=== PATIENT | female | born 1955 | race American Indian/Alaskan Native ===

== ENCOUNTER 2020-11-09 17:41 | Emergency (ER) | payer OTHER ==
--- NOTE | 2020-11-09 18:13 | Event Note ---
ED Screening Note ED Screening Note: LLQ abd pain that radiates to the left lower back began two hours ago +n/v no diarrhea no constipation had a normal BM today no blood or pus in the stool PMHx none no daily meds no allergies to meds abdominal surgical hx: tubal ligation This initial assessment/diagnostic orders/clinical plan/treatment(s) is/are subject to change based on patients health status, clinical progression and re- assessment by fellow clinical providers in the ED. Further treatment and workup at subsequent clinical providers discretion. Patient/guardian urged not to elope from the ED as their condition may be serious if not clinically assessed and managed. Initial orders include: labs, UA, CT abd pelvis
[2020-11-09] MEDS ORDERED: ONDANSETRON 4 MG/2 ML INJ IV ONE (18:14)
[2020-11-09] MEDS ORDERED: MORPHINE 4 MG/1 ML INJ IV ONE (18:14)
[2020-11-09] MEDS ORDERED: SODIUM CHLORIDE 0.9% 1000 ML 1,000 ML IV ONE (18:14)
--- NOTE | 2020-11-09 18:18 | Emergency Department Report ---
ED Abdominal Pain HPI - General Chief Complaint: Abdominal Pain Stated Complaint: ABD PAIN Time Seen by Provider: 11/09/20 18:11 Source: patient Mode of arrival: Ambulatory Limitations: No Limitations - History of Present Illness Initial Comments: Patient is a 64-year-old female presents emergency room complaints of left lower quadrant pain that radiates to her left lower back that began 2 hours ago. She has associated nausea and vomiting. She states she had a normal bowel movement today. She denies any fever, chills, urinary symptoms, hematochezia, melena, hematemesis,diarrhea, pus in the stool. No past medical history. No daily medications. No allergies to medications. she denies any past abdominal surgical history. - Related Data Previous Rx's Medication Instructions Recorded Last Taken Type HYDROcodone/APAP 5-325 [[place] 1 each PO Q6HR PRN #12 tablet 11/09/20 Unknown Rx 5/325] Ketorolac [Toradol] 10 mg PO Q6H PRN #10 tablet 11/09/20 Unknown Rx Ondansetron [Zofran Odt] 4 mg PO Q8HR PRN #10 tab.rapdis 11/09/20 Unknown Rx Tamsulosin [Flomax] 0.4 mg PO QDAY #7 cap 11/09/20 Unknown Rx Allergies Allergy/AdvReac Type Severity Reaction Status Date / Time No Known Allergies Allergy Unverified 11/09/20 18:06 ED Review of Systems ROS: Stated complaint: ABD PAIN Other details as noted in HPI Comment: All other systems reviewed and negative ED Past Medical Hx - Past Medical History Previous Medical History?: No - Surgical History Past Surgical History?: No - Social History Smoking Status: Never Smoker Substance Use Type: None - Medications Home Medications: Home Medications Medication Instructions Recorded Confirmed Last Taken Type HYDROcodone/APAP 5-325 [[place] 1 each PO Q6HR PRN #12 tablet 11/09/20 Unknown Rx 5/325] Ketorolac [Toradol] 10 mg PO Q6H PRN #10 tablet 11/09/20 Unknown Rx Ondansetron [Zofran Odt] 4 mg PO Q8HR PRN #10 tab.rapdis 11/09/20 Unknown Rx Tamsulosin [Flomax] 0.4 mg PO QDAY #7 cap 11/09/20 Unknown Rx ED Physical Exam - General Limitations: No Limitations General appearance: alert, in no apparent distress - Head Head exam: Present: atraumatic, normocephalic - Eye Eye exam: Present: normal appearance - ENT ENT exam: Present: mucous membranes moist - Respiratory Respiratory exam: Present: normal lung sounds bilaterally. Absent: respiratory distress, wheezes, rales, rhonchi, stridor, chest wall tenderness, accessory muscle use, decreased breath sounds, prolonged expiratory - Cardiovascular Cardiovascular Exam: Present: regular rate, normal rhythm, normal heart sounds. Absent: systolic murmur, diastolic murmur, rubs, gallop - GI/Abdominal GI/Abdominal exam: Present: soft, tenderness (LLQ), normal bowel sounds. Absent: distended, guarding, rebound, rigid - Back Exam Back exam: Absent: CVA tenderness (R), CVA tenderness (L) - Neurological Exam Neurological exam: Present: alert, oriented X3 - Psychiatric Psychiatric exam: Present: normal affect, normal mood - Skin Skin exam: Present: warm, dry, intact ED Course Vital Signs 11/09/20 11/09/20 18:10 18:39 Temperature 98.0 F Pulse Rate 68 Respiratory 16 18 Rate Blood Pressure 187/81 O2 Sat by Pulse 97 Oximetry ED Medical Decision Making - Lab Data Result diagrams: 11/09/20 18:55 11/09/20 18:55 Lab Results 11/09/20 11/09/20 11/09/20 Range/Units 18:55 18:55 Unknown WBC 10.9 (4.5-11.0) K/mm3 RBC 4.49 (3.65-5.03) M/mm3 Hgb 11.5 (10.1-14.3) gm/dl Hct 35.6 (30.3-42.9) % MCV 79 (79-97) fl MCH 26 L (28-32) pg MCHC 32 (30-34) % RDW 16.1 H (13.2-15.2) % Plt Count 308 (140-440) K/mm3 Lymph % (Auto) 19.0 (13.4-35.0) % [place] % (Auto) 4.7 (0.0-7.3) % Eos % (Auto) 0.3 (0.0-4.3) % Baso % (Auto) 0.8 (0.0-1.8) % Lymph # (Auto) 2.1 (1.2-5.4) K/mm3 [place] # (Auto) 0.5 (0.0-0.8) K/mm3 Eos # (Auto) 0.0 (0.0-0.4) K/mm3 Baso # (Auto) 0.1 (0.0-0.1) K/mm3 Seg Neutrophils % 75.2 H (40.0-70.0) % Seg Neutrophils # 8.2 H (1.8-7.7) K/mm3 Sodium 142 (137-145) mmol/L Potassium 4.0 (3.6-5.0) mmol/L Chloride 107.7 H (98-107) mmol/L Carbon Dioxide 20 L (22-30) mmol/L Anion Gap 18 mmol/L BUN 13 (7-17) mg/dL Creatinine 0.8 (0.6-1.2) mg/dL Estimated GFR > 60 ml/min BUN/Creatinine Ratio 16 % Glucose 139 H (65-100) mg/dL Calcium 9.2 (8.4-10.2) mg/dL Total Bilirubin 0.30 (0.1-1.2) mg/dL AST 21 (5-40) units/L ALT 16 (7-56) units/L Alkaline Phosphatase 101 (35-129) units/L Total Protein 6.9 (6.3-8.2) g/dL Albumin 4.2 (3.9-5) g/dL Albumin/Globulin Ratio 1.6 % Lipase 25 (13-60) units/L Urine Color Straw (Yellow) Urine Turbidity Clear (Clear) Urine pH 6.0 (5.0-7.0) Ur Specific [place] 1.045 H (1.003-1.030) Urine Protein <15 mg/dl (Negative) mg/dL Urine Glucose (UA) Neg (Negative) mg/dL Urine Ketones Neg (Negative) mg/dL Urine Blood Sm (Negative) Urine Nitrite Neg (Negative) Urine Bilirubin Neg (Negative) Urine Urobilinogen < 2.0 (<2.0) mg/dL Ur Leukocyte Esterase Tr (Negative) Urine WBC (Auto) 5.0 (0.0-6.0) /HPF Urine RBC (Auto) 33.0 (0.0-6.0) /HPF U Epithel Cells (Auto) 3.0 (0-13.0) /HPF Urine Mucus Few /HPF Vital Signs 11/09/20 11/09/20 18:10 18:39 Temperature 98.0 F Pulse Rate 68 Respiratory 16 18 Rate Blood Pressure 187/81 O2 Sat by Pulse 97 Oximetry - Radiology Data Radiology results: report reviewed CT abdomen pelvis with IV contrast Radiologist Nicola Baldwin MD Impression 1 cm stone in the distal left ureter with obstruction. The ureter below the stone appears to be dilated extending into some surgical clips Shotty lymph nodes below the cecum which are of unknown clinical significance Umbilical hernia containing only fat Sclerosis on both sides of the sacroiliac joints - Medical Decision Making Patient is a 64-year-old female presents emergency room complaints of left lower quadrant pain that radiates to her left lower back that began 2 hours ago. She has associated nausea and vomiting. She states she had a normal bowel movement today. She denies any fever, chills, urinary symptoms, hematochezia, melena, hematemesis,diarrhea, pus in the stool. No past medical history. No daily medications. No allergies to medications. she denies any past abdominal surgical history. Vitals are stable. On exam patient has left lower quadrant tenderness to palpation, no guarding, no rebound no rigidity, normal bowel sounds, no peritoneal signs. Labs are stable. UA shows red blood cells, otherwise normal. CT abdomen pelvis with IV contrast 1 cm stone in the distal left ureter with obstruction. The ureter below the stone appears to be dilated extending into some surgical clips. Shotty lymph nodes below the cecum which are of unknown clinical significance. Umbilical hernia containing only fat. Sclerosis on both sides of the sacroiliac joints. Patient given medications while in the emergency department and symptoms improved and she was feeling much better and ready to go home. Patient had no further episodes of vomiting and was able to tolerate p.o. intake. She states her pain is significantly better. Discussed all results with patient and answered questions. Patient will be referred to urology and GI, discussed the importance of follow-up with patient in detail. Discussed very strict return precautions with patient. Discussed case with Dr. Pearce, ER attending who agrees with plan. Patient given prescription for [place], Toradol, Zofran, Flomax. Advised patient Please take medication as prescribed. Increase your water intake. Follow-up with the urologist. Follow-up with a GI doctor. Return to emergency room for any new or worsening symptoms. Critical care attestation.: If time is entered above; I have spent that time in minutes in the direct care of this critically ill patient, excluding procedure time. ED Disposition Clinical Impression: Nephrolithiasis, LAD (lymphadenopathy), intra-abdominal Abdominal pain Qualifiers: Abdominal location: left lower quadrant Qualified Code(s): R10.32 - Left lower quadrant pain Hydronephrosis Qualifiers: Hydronephrosis type: with renal calculous obstruction Qualified Code(s): N13.2 - Hydronephrosis with renal and ureteral calculous obstruction Disposition: TO HOME OR SELFCARE Is pt being admited?: No Does the pt Need Aspirin: No Condition: Stable Instructions: Kidney Stones, Hydronephrosis, Abdominal Pain (ED) Additional Instructions: Please take medication as prescribed. Increase your water intake. Follow-up with the urologist. Follow-up with a GI doctor. Return to emergency room for any new or worsening symptoms. Prescriptions: Tamsulosin [Flomax] 0.4 mg PO QDAY #7 cap HYDROcodone/APAP 5-325 [[place] 5/325] 1 each PO Q6HR PRN #12 tablet PRN Reason: Pain , Severe (7-10) Ketorolac [Toradol] 10 mg PO Q6H PRN #10 tablet PRN Reason: Pain, Moderate (4-6) Ondansetron [Zofran Odt] 4 mg PO Q8HR PRN #10 tab.rapdis PRN Reason: vomiting Referrals: PRIMARY MD BERNA [Primary Care Provider] - 2-3 Days DARIN AVILA MD [Staff Physician] - 2-3 Days [facility] [Provider Group] - 2-3 Days Time of Disposition: 23:08 Print Language: WELSH
[2020-11-09 19:16] LABS: Basophils # (Auto) 0.1 K/mm3 (0.0-0.1); Basophils % (Auto) 0.8 % (0.0-1.8); Eosinophils % (Auto) 0.3 % (0.0-4.3); Hematocrit 35.6 % (30.3-42.9); Hemoglobin 11.5 gm/dl (10.1-14.3); Lymphocytes # (Auto) 2.1 K/mm3 (1.2-5.4); Mean Corpuscular HGB Conc 32 % (30-34); Mean Corpuscular Volume 79 fl (79-97); Monocytes # (Auto) 0.5 K/mm3 (0.0-0.8); Monocytes % (Auto) 4.7 % (0.0-7.3); Platelet Count 308 K/mm3 (140-440); Red Blood Count 4.49 M/mm3 (3.65-5.03); Red Cell Distribution Width 16.1 % (13.2-15.2)
[2020-11-09] MEDS ORDERED: HYDROmorphone 1 MG/1 ML INJ IV ONE (19:25)
[2020-11-09 20:08] LABS: Alanine Aminotransferase 16 units/L (7-56); Albumin 4.2 g/dL (3.9-5); BUN/Creatinine Ratio 16; Blood Urea Nitrogen 13 mg/dL (7-17); Calcium 9.2 mg/dL (8.4-10.2); Hemolysis Index 39
--- NOTE | 2020-11-09 20:50 | Cat Scan Report ---
CT abdomen pelvis w con INDICATION / CLINICAL INFORMATION: LLQ abd pain, n/v. TECHNIQUE: All CT scans at this location are performed using CT dose reduction for ALARA by means of automated e xposure control. COMPARISON: None available. FINDINGS: No free fluid is seen in the abdomen. Left-sided hydronephrosis and hydroureter are present. The live r, spleen, right kidney, pancreas and adrenal glands are normal. No enlarged mesenteric or retroperit foote lymph nodes are seen. In the pelvis, no free fluid is seen. There is a 1 cm stone in the distal left ureter with obstructio n. The ureter below this appears to be dilated as well extending into some surgical clips. No enlarge d lymph nodes are identified. The bladder is normal. There are a few nonspecific appearing shoddy lym ph nodes just below the cecum. An umbilical hernia is present containing only fat. Sclerosis is seen on both sides of the sacroiliac joints. IMPRESSION: 1. 1 cm stone in the distal left ureter with obstruction. The ureter below the stone appears to be di lated extending into some surgical clips 2. Shotty lymph nodes below the cecum which are of unknown clinical significance 3. Umbilical hernia containing only fat 4. Sclerosis on both sides of the sacroiliac joints Signer Name: Nicola Baldwin MD FACR Signed: 11/09/2020 8:46 PM Workstation Name: [id number]
[2020-11-09] MEDS ORDERED: KETOROLAC 30 MG/1 ML INJ IV ONE (21:10)
[2020-11-09 23:02] LABS: Bilirubin,Urine NEG (Negative); Blood,Urine SM (Negative); Color,Urine Straw (Yellow); Mucus,Urine FEW /HPF; Protein,Urine <15 mg/dL mg/dL (Negative); Urobilinogen,Urine < 2.0 mg/dL (<2.0)
[2020-11-10 00:14] VITALS: BP 180/72
== END 2020-11-10 00:14 | disposition home or self-care (01) ==
LOC: ED 17:41
DX: N13.30 Unspecified hydronephrosis (principal); N20.0 Calculus of kidney; R59.1 Generalized enlarged lymph nodes; R10.32 Left lower quadrant pain; Z79.899 Other long term (current) drug therapy
CPT/HCPCS: 36415; 74177; 80053; 81001; 83690; 85025; 96361; 96374; 96375; 99284; J1170; J1885; J2270; J2405; J7030; Q9967